=== PATIENT | female | born 1980 | race Two or more races ===

== ENCOUNTER 2024-01-25 11:35 | Emergency (ER) | payer OTHER ==
[~2024-01-25] VITALS: Wt 71.7 kg
[2024-01-25 13:22] LABS: HEMATOCRIT 42.2 % (36.0-45.00); HEMOGLOBIN 14.8 g/dL (12.0-15.00); MEAN CELL VOLUME 91.2 fL (80.00-100.00); MEAN CORPUSCULAR HGB CONC 35.1 g/dl (32.0-36.0); PLATELET COUNT 189 K/uL (150-450); RED BLOOD COUNT 4.62 M/uL (4.00-6.00); RED CELL DISTRIBUTION WIDTH 12.9 % (11.5-14.5)
[2024-01-25 13:50] LABS: CALCIUM 9.2 mg/dL (8.5-10.1); CREATININE SERUM 0.96 mg/dL (0.55-1.02); GFR 63.14; POTASSIUM 4.1 mEq/L (3.5-5.1)
[2024-01-25 13:59] LABS: PH,URINE 5.5 (5.0-8.0); URINE APPEARANCE Clear; URINE BILIRRUBIN Negative (NEGATIVE); URINE BLOOD Negative; URINE COLOR Yellow; URINE GLUCOSE Negative (NEGATIVE); URINE KETONE Negative (NEGATIVE); URINE LEUKOCYTE Trace; URINE NITRATE Negative; URINE PROTEIN Negative (NEGATIVE)
[2024-01-25 14:03] LABS: URINE BACTERIA 2325.8 uL (0.0-1933); URINE EPITHELIAL CELLS 32.6 uL (0.0-38.8); URINE RBC 4.2 uL (0.0-20.8); URINE WBC 83.3 uL (0.0-23.2)
== END 2024-01-25 18:38 | disposition home or self-care (01) ==
LOC: ER 11:37
PROVIDERS: General Practice
DX: R10.31 Right lower quadrant pain (principal)